=== PATIENT | male | born 1975 | race Caucasian/White ===

== ENCOUNTER 2020-06-30 14:34 | Emergency (ER) | payer OTHER, SELFPAY ==
[2020-06-30] VITALS (9 sets, daily range): BP systolic 132–148; BP diastolic 62–98; PULSE 72–88; RESP 16–18; TEMP 36.7–37.1; O2SAT 96–99; BMI 28.4
[2020-06-30 15:21] LABS: Absolute Lymphocyte Count 1.75 X10^3/uL (0.83-4.51); Absolute Neutrophil Count 2.4 X10^3/uL (2.0-7.7); Basophil# 0.02 X10^3/uL; Basophil% 0.4 % (0-1); Eosinophil# 0.01 X10^3/uL; Eosinophils% 0.2 % (0-5); Hematocrit 43.9 % (40-54); Hemoglobin 14.7 g/dL (13.0-16.5); Lymphocyte # 1.75 X10^3/ul (4.0); Lymphocyte % 38.6 % (19-41); Mean Corp Hgb Conc 33.5 g/dL (32-36); Mean Corpuscular Hgb 28.5 pg (27.0-32.0); Mean Corpuscular Volume 85.1 fL (80-94); Mean Platelet Vol. 11.4 fl (6.2-12.0); Monocyte# 0.37 X10^3/uL; Monocyte% 8.2 % (0-10); NRBC Flagged by Analyzer 0 % (0-5); Neutrophil # 2.36 X10^3/uL (2.7-7.7); Neutrophil % 52.2 % (47-70); Platelet Count 153 K/mm3 (150-450); RBC Distribution Width CV 12.5 % (11.6-14.6); RBC Distribution Width SD 38.6 fl (35.1-43.9); Red Blood Count 5.16 M/mm3 (4.6-6.2); White Blood Count 4.5 K/mm3 (4.4-11.0)
--- NOTE | 2020-06-30 15:24 | CM.ED ---
SOCIAL WORK Received call from forestry workerAngelita prior to patient's arrival. Per Angelita, Crisis will assess patient after arrival. Anticipate referral to [facility]. Patient on phone with Crisis at this time. Nilo Davis MSW, SUPERVISOR ESTERS AND EMULSIFIERS
[2020-06-30 15:39] LABS: Anion Gap 5 (5-15); BUN 14 mg/dL (7-18); BUN/Creat Ratio 11.8 RATIO (10-20); Calcium,Total 8.8 mg/dL (8.5-10.1); Chloride 106 mmol/L (98-107); Creatinine, Serum 1.19 mg/dL (0.70-1.30); EST Glomerular Filtration Rate 70 mL/min (>60); Est Glom Filt Rate - Afr Amer 84 mL/min (>60); Estimated Creatinine Clearance 82.61 ml/min; Glucose 98 mg/dL (74-106); Potassium 3.8 mmol/L (3.5-5.1); Sodium Level 139 mmol/L (136-145)
[2020-06-30 15:56] LABS: Alcohol, Blood (Medical)-Serum < 3.0 mg/dL
--- NOTE | 2020-06-30 16:23 | ED.VISSUMM ---
- ER Visit Summary Date of Service: 06/30/20 Chief Complaint: Depression History of Present Illness: The patient is a [address] Garcia in the counseling center. He reports that he has chronic depression that has worsened over the past 6 months and over the past 2 months he feels as though he cannot cope. He denies overt suicidal ideation. However, he reports he is having auditory hallucinations that are negative thoughts and that he is concerned that he is going to harm himself. Physical Examination: Vitals: Stable. Afebrile. General: Well-nourished and well-developed. Head: Normocephalic atraumatic. Neck: Supple, no lymphadenopathy. No JVD. Nontender. Cardiovascular: Regular rate and rhythm. No murmurs. Respiratory: No respiratory distress. Clear to auscultation bilaterally. Abdominal: Soft, nontender, nondistended, normal bowel sounds. No guarding, rebound, or peritoneal signs. Back: Nontender. Extremities: Nontender, no edema. Skin: Normal color, no rash. Neurologic: Alert and oriented ?3. Cranial nerves II through XII are intact. Normal strength and sensation. Mental status exam: Patient appears their stated age. Good posture and grooming. Good eye contact. Normal rate, volume, and latency of speech. No suicidal or homicidal ideation. No visual hallucinations. Flow of thought is logical. Insight and judgment is fair. Test Results: CBC is normal. Chem-7 is normal. Alcohol is negative. Covid is negative. Tox screen is negative. LFTs are normal. EKG is sinus at 94 with no acute changes. Emergency Department Course and Treatment: Patient is resting comfortably without complaint. He is medically cleared. Treatment Plan: Patient was discussed with the counseling center. He is unable to contract for safety. He will be admitted to a psychiatric hospital for further evaluation and treatment. Disposition: Pending Impression: 1. Depression. This note was generated with [employer] dictation software. It may contain incorrect words, spelling, and punctuation that were not noted in review of the chart prior to signing ED Disposition - Plan for ED Patient: Referrals: Lwa Garcia MD [Primary Care Provider] -
[2020-06-30 17:00] LABS: Amphetamine Urine VISTA NEGATIVE (<1000 ng/mL); Barbiturate Urine VISTA NEGATIVE (< 200 ng/mL); Benzodiazepine Urine VISTA NEGATIVE (< 200 ng/mL); Cocaine Urine VISTA NEGATIVE (< 300 ng/mL); Ecstacy Urine VISTA NEGATIVE (< 500 ng/mL); Methadone Urine VISTA NEGATIVE (< 300 ng/mL); PCP Urine VISTA NEGATIVE (< 25 ng/mL); THC Urine VISTA NEGATIVE (< 50 ng/mL); Vista UDS pH Range 6
--- NOTE | 2020-06-30 17:10 | CM.ED ---
SOCIAL WORK Patient medically cleared. Chart faxed to Crisis for placement. Nilo Davis, BENEFITS CONSULTING ANALYST, PRODUCT DEVELOPMENT SCIENTIST
[2020-06-30 19:49] LABS: AST(SGOT) 20 U/L (15-37); Alanine Aminotransfer ALT/SGPT 33 U/L (16-61); Albumin, Serum 4.1 g/dL (3.2-5.0); Alkaline Phosphatase 48 U/L (45-117); Bilirubin, Direct 0.07 mg/dL (0.00-0.30); Globulin 3.3 g/dL (2.2-4.2); Protein, Total 7.4 g/dL (6.4-8.2)
--- NOTE | 2020-06-30 19:52 | ED.RN ---
PER CRISIS, [facility] REQUESTED ADDITIONAL TESTING, REQUEST FAXED TO [facility] AT THIS TIME
--- NOTE | 2020-06-30 19:57 | EKG12_ITS ---
Test Reason : MHC Blood Pressure : / mmHG Vent. Rate : 094 BPM Atrial Rate : 094 BPM P-R Int : 152 ms QRS Dur : 090 ms QT Int : 346 ms P-R-T Axes : 068 -06 050 degrees QTc Int : 432 ms Normal sinus rhythm Normal ECG Confirmed by ALLISON LOPES, DIANA ([id number]), tape editor ANAHI SAMSON ([id number]) on 07/02/2020 8:45:20 AM Referred By: PANCHO Confirmed By:LORENA COOPER MD
== END 2020-06-30 23:56 | disposition home or self-care (01) ==
LOC: ED 15:19
PROVIDERS: Emergency Provider Emergency Medicine; PCP Family Medicine
DX: F32.9 Major depressive disorder, single episode, unspecified (principal); Z72.0 Tobacco use
CPT/HCPCS: 80048; 80076; 80307; 82077; 85025; 87426; 93005; 99285

== ENCOUNTER 2023-05-21 18:05 | Emergency (ER) | payer SELFPAY ==
[2023-05-21 18:07] VITALS: BP 141/95; PULSE 91; RESP 16; TEMP 35.7; O2SAT 97; BMI 33.7
--- NOTE | 2023-05-21 18:21 | EDS_ITS ---
HPI History of Present Illness Chief Complaint: Complaint Informant: patient Pain Onset: Month(s) Narrative Narrative: Patient presents secondary to difficulty urinating. He states he has stuttering stream and goes frequently. This past summer he required a Sloan catheter for short time. He reportedly followed up with someone at [facility] who took the catheter out told he just was not drinking enough fluids. He has had recurrent symptoms. He is scheduled to see Dr. Alicea in 3 days. Because his symptoms are worse today he called Dr. Alicea who recommended he come in for a catheter if needed. Patient denies dysuria. PFSH PFS Home Medications quetiapine 200 mg tablet 700 mg PO DAILY 06/30/20 [History Last Taken Unknown] clonazepam 1 mg tablet 1 mg PO Q12H 05/21/23 [History Last Taken Unknown] fenofibrate nanocrystallized 145 mg tablet 145 mg PO DAILY 05/21/23 [History Last Taken Unknown] lamotrigine 200 mg tablet 200 mg PO DAILY 05/21/23 [History Last Taken Unknown] metoprolol tartrate 25 mg tablet 25 mg PO Q12H 05/21/23 [History Last Taken Unknown] simvastatin 40 mg tablet 40 mg PO QHS 05/21/23 [History Last Taken Unknown] Allergy/AdvReac Type Severity Reaction Status Date / Time No Known Allergies Allergy Verified 05/21/23 18:06 Social History Smoking Status: Former smoker Smokeless tobacco user: chewing tobacco ROS ROS ED Constitutional Constitutional ED: Denies chills or fever(s) Eyes Eyes: Denies discharge from eye(s) ENT ENT ED: Denies discharge from eye(s), rhinorrhea or sore throat Cardiovascular Cardiovascular: Denies chest pain Respiratory/Chest Respiratory/Chest: Denies cough or dyspnea Gastrointestinal Gastrointestinal: Denies abdominal pain, nausea or vomiting Genitourinary Genitourinary ED: Reports difficulty urinating; Denies dysuria Musculoskeletal Musculoskeletal: Denies back pain or extremity pain Integumentary Denies Abrasions or rash Neurologic Neurologic: Denies headache(s) or weakness Psychiatric Psychiatric: Denies anxiety or depression Allergic/Immunologic Allergic/Immunologic ED: Denies lip swelling or urticaria EXAM Physical Exam Const Vital Signs: 05/21/23 18:07 05/21/23 20:10 Temperature 96.2 F L Temperature Source Temporal Pulse Rate 91 Respiratory Rate 16 18 Blood Pressure 141/95 H Blood Pressure Mean 110 Pulse Ox 97 Oxygen Delivery Method Room Air Positive well nourished and well developed General Appearance ED: well developed HEENT Reports moist mucous membranes Eyes EOMs intact bilaterally Resp normal respiratory effort and clear to auscultation bilaterally Cardio regular rate and regular rhythm GI non-tender Auscultation: normoactive bowel sounds no CVA tenderness Neuro oriented x3 and moves all extremities Psych mental status grossly normal Skin Lesions: no lesions Rashes: no rashes MDM MDM MDM Narrative Medical decision making narrative: Patient feels like he needs to urinate at this time. He will provide us a urine sample and we will obtain a postvoid bladder scan. Urine sent for urinalysis. Lab Data Labs: Laboratory Results - last 24 hr 05/21/23 18:52 Urine Color Yellow Urine Clarity Clear Urine pH 7.0 Ur Specific [place] 1.010 Urine Protein Negative Urine Glucose (UA) Normal Urine Ketones Negative Urine Occult Blood 10 H Urine Nitrite Negative Urine Bilirubin Negative Urine Urobilinogen Normal Ur Leukocyte Esterase 500 H Urine RBC 0 SEEN Urine WBC 5-10 SEEN Ur Squamous Epith Cells 0 SEEN Urine Bacteria 1+ Urine Mucus 0 SEEN Treatment and Re-Evaluation Narrative: Patient was able to void approximately 75 cc. Bladder scan still showed 780 cc in his bladder. Nursing staff attempted to place a Sloan catheter. They state that he had so much scarring and narrowing of the urethral meatus that they were not able to insert a 14 coud? catheter more than a millimeter or 2. I spoke with Dr. Alicea who presented to the emergency room. He was able to stretch the meatus and place a catheter. Urinalysis shows 1+ bacteria with 5-10 white cells and no nitrites. This was discussed with Dr. Alicea and he does not need to be placed on antibiotics at this time. Dr. Alicea's office will be calling him to schedule a surgical procedure. Patient will go home with Sloan catheter. Discharge Plan Triage Chief Complaint: Complaint ED Provider: Kyara Paiz Dx/Rx/DC Orders Clinical Impression: Urinary retention Instructions: ED Sloan Catheter, Care, ED Urinary Retention, Male Prescriptions: No Action quetiapine 200 MG tablet 700 mg PO DAILY Rx Instructions: 1OO MG IN THE MORNING AND 600MG IN THE EVENING clonazepam 1 mg tablet 1 mg PO Q12H Patient Comments: TAKE ONE TABLET BY MOUTH TWICE DAILY NEEDED FOR ANXIETY lamotrigine 200 mg tablet 200 mg PO DAILY Patient Comments: TAKE ONE TABLET BY MOUTH DAILY metoprolol tartrate 25 mg tablet 25 mg PO Q12H Patient Comments: TAKE ONE TABLET BY MOUTH TWICE DAILY simvastatin 40 mg tablet 40 mg PO QHS Patient Comments: TAKE ONE TABLET BY MOUTH DAILY IN THE EVENING fenofibrate nanocrystallized 145 mg tablet 145 mg PO DAILY Patient Comments: TAKE ONE TABLET BY MOUTH DAILY Primary Care Provider: Law Garcia Referrals: Fausto Alicea MD [Med Staff - Active Staff] - As soon as possible Law Garcia MD [Primary Care Provider] - Activity Restrictions/Additional Instructions: Dr. Alicea's office will contact you with follow-up instructions. Disposition Disposition: Home, Self Care Discharge Date/Time: 05/21/23 20:12
[2023-05-21 18:59] LABS: Mucous, Urine 0 SEEN /hpf (<or=2+); Red Blood Cells-Urine 0 SEEN /hpf (0-5); Squamous Epithelial Cells - UA 0 SEEN /hpf (0-5)
[2023-05-21 19:09] LABS: Color, Urine Yellow (Yellow); Glucose, Dipstick Normal (Normal); Ketone-Dipstick Negative (Negative); Leukocyte Esterase-Dipstick 500 /ul (Negative); Nitrite-Dipstick Negative (Negative); Occult Blood-Urine 10 /ul (Negative); Protein-Dipstick Negative (Negative); Urine Bilirubin Dipstick Negative (Negative); Urine Clarity Clear (Clear); Urine Urobilinogen Normal (Normal)
--- OUTSIDE RECORDS SUMMARY | 2023-05-21 19:15 | XMS RPT_ITS | CCD ---
Author Name Unknown Address [address] [place] [address] Organization [facility] Care Team Providers Care Tank Officer Name Role Phone LATOYA DESOUZA Unavailable Unavailable PHYSICIAN, NONE Unavailable Unavailable DOS%ANAHI KULKARNI MD Admitting Unavailabl e DOS%ANAHI KULKARNI MD Attending Unavailabl e DOSANAHI MATHEWS MD Primary Care Unavailabl e BOSS, JAMIN PA-C Referring Unavailable BOSS, JAMIN PA-C Consulting Unavailable PROVIDER, UNKNOWN Consulting Unavailable BOSS, JAMIN PA-C Admitting Unavailable BOSS, JAMIN PA-C Attending Unavailable BOSS, JAMIN PA-C Primary Care Unavailable BOSS, JAMIN PA-C Consulting Unavailable PROVIDER, UNKNOWN Consulting Unavailable BOSS, JAMIN PA-C Admitting Unavailable BOSS, JAMIN PA-C Attending Unavailable BOSS, JAMIN PA-C Primary Care Unavailable BOSS, JAMIN PA-C Consulting Unavailable PROVIDER, UNKNOWN Consulting Unavailable IVANIA TRENT Admitting Unavailable IVANIA TRENT Attending Unavailable IVANIA TRENT Primary Care Unavailable BOSS, JAMIN PA-C Consulting Unavailable BOSS, JAMIN PA-C Referring Unavailable PROVIDER, UNKNOWN Consulting Unavailable Unavailable Primary Care Provider Unavailabl e JONY HAMMONDS Attending Unavailable BOSS, JAMIN Referring Unavailable Bsos PA-C, Jamin J Unavailable Urologist Provider Unavailable Unavailable Drake LOPES, Dr. Reeder ([facility]) A Unavail able Deanne LOPES, Dr. Lambert ([facility]) Unavailable Gillian TIN FLIPPER, Neetu Unavailable Dilip Swan MD Unavailable Day TIN FLIPPER, Chaya Unavailable Unavailable Gogoi (scribe), Hemanta Unavailable Unavaila ble Jj TIN FLIPPER, Lea Unavailable Unavailable Jose LOPES, Law Perez Unavailable Molina HASKINS, Vel Seymour Unavailable [phone] Molina RN, Loren L Unavailable Unavail able Dannie MA, Jessica Unavailable Unavailable Maxime TIN FLIPPER, Mattie Unavailable Unavailable Karishma CISNEROS, Lana A Unavailable Unavaila ble Jed ([facility]), Derick Unavailable Unavailab xiomy Bryan RN, Caro Y Unavailable Unavailable Alexandra TIN FLIPPER, Park Unavailable Unavailable Mutersbaugh TIN FLIPPER, Misa K Unavailable Unavai gato Mitchell ([facility]), Rene Unavailable Unavailab le Richert TIN FLIPPER, Shanti L Unavailable Unavailab le Agnes TIN FLIPPER, Lucina M Unavailable Unavailab le Abiel TIN FLIPPER, Nereida Umanzor Unavailable Unavailab xiomy Ramsay MA, Mattie Unavailable Unavailable Raphaelngeresther TIN FLIPPER, Kyara Unavailable Unavailabl fernanda Guevara TIN FLIPPER, Indigo Gaxiola Unavailable Unavaila ble Zaugg TIN FLIPPER, Kendra Unavailable Unavailable Unavailable Unavailable Allergies Allergy Classification Reported Allergen(s) Allergy Type Date of Onset Reaction(s) Facility (2 sources) Acetaminophen / HYDROcodone; Translations: [HYDROCODONE-ACETA MINOPHEN] Drug Allergy 3 Mental Status Change [facility] Work Phone: Medications Current Medications Medication Drug Class(es) Dates Sig (Normalized) Sig (Original) fenofibrate 145 mg oral tablet (2 sources) Peroxisome Proliferator Receptor alpha Agonist Start: 03-13-2023 fenofibrate nanocrystallized 145 mg tablet ; 1 (one) Tablet daily for 0 days Quantity: 90 {Tablet} Refills: 3 Ordered: 13-Mar-2023 JOZEF Boss Start: 13-Mar-2023 Completed/Discontinued Medications Medication Drug Class(es) Dates Sig (Normalized) Sig (Original) amoxicillin 875 mg / clavulanate 125 mg oral tablet (1 source) Penicillin-class Antibacterial Start: 02-27-2019 End: 03-13-2019 take 1 tablet by mouth twice daily Amoxicillin-Pot Clavulanate 875-125 MG Oral Tablet ; 1 (one) Tablet two times daily for 14 days Quantity: 28 {Tablet} Refills: 0 Ordered: 27-Feb-2019 MD Law Garcia Start: 27-Feb-2019 End: 13-Mar-2019 Status: Inactive azithromycin 500 mg oral tablet (2 sources) Macrolide Antimicrobial Start: 08-22-2018 End: 08-25-2018 take 1 tablet by mouth once daily Azithromycin 500 MG Oral Tablet ; 1 (one) Tablet daily for 3 days Quantity: 3 {Tablet} Refills: 0 Ordered: 22-Aug-2018 MD Law Garcia Start: 22-Aug-2018 End: 25-Aug-2018 Status: Inactive Problems Active Problems Problem Classification Problem Date Documented Date Episodic/Chronic Abdominal pain (6 sources) Flank pain; Translations: [Unspecified abdominal pain] 05-07-2023 Episodic Acute bronchitis (2 sources) Acute bronchitis; Translations: [Acute bronchitis, unspecified] 08-22-2018 Episodic Administrative/socia l admission (1 source) Repeated prescription; Translations: [Encounter for issue of repeat prescription] 02-26-2017 Episodic Coagulation and hemorrhagic disorders (3 sources) Thrombocytopenic disorder; Translations: [Thrombocytopenia, unspecified] 05-07-2023 Chronic Diseases of white blood cells (3 sources) Leukopenia; Translations: [Decreased white blood cell count, unspecified] 05-07-2023 Chronic Disorders of lipid metabolism (20 sources) Hyperlipidemia; Translations: [Hyperlipidemia, unspecified] 05-07-2023 Chronic Essential hypertension (15 sources) Hypertensive disorder; Translations: [Essential (primary) hypertension] 05-07-2023 Chronic Genitourinary symptoms and ill-defined conditions (10 sources) Retention of urine; Translations: [Retention of urine, unspecified] Onset: 11-03-2022 Episodic Mood disorders (16 sources) Bipolar disorder; Translations: [Bipolar disorder, unspecified] 05-07-2023 Chronic Past or Other Problems Problem Classification Problem Date Documented Date Episodic/Chronic Open wounds of extremities (3 sources) Puncture wound with foreign body of right hand, initial encounter; Translations: [Puncture wound with foreign body of right hand, initial encounter] Onset: 07-05-2022 Episodic Unclassified (1 source) UTI - Symptoms include hematuria (occasionally), but do not include dysuria, urinary frequency, urinary urgency, flank pain, abdominal pain or back pain. Onset was gradual 3 month(s) ago. There is no known event that preceded symptom onset. The symptoms occur frequently. The patient describes this as moderate in severity and worsening. Symptoms are not relieved by cranberry juice. Associated symptoms include urinary incontinence (2-3 times a week), urinary retention (Patient was in the ER in October and needed a catheter at the time. He had follow up with a urologist, but they removed the catheter and did not do any other workup. He reports that symptoms of urinary retention did not start again until 2-3 months ago.) and urinary hesitancy, but do not include fever, chills, nausea or urethral discharge. Note for UTI : Patient also reports a painful lump on the shaft of his penis that seems to be getting bigger over the last 2-3 weeks. 05-07-2023 Unclassified (1 source) Chest pain - The onset of the pain has been acute and has been occurring in an episodic pattern for 6 days. Each episode lasts hours (approx 1-2 hours). The pain is described as a moderate to severe tightness ( shakiness , located in the center of chest). The pain does not radiate. The pain is precipitated by nothing (Happens at rest or with activity). The symptoms are aggravated by stress (he wonders if his symptoms are related to anxiety. He did speak with a nurse with psychiatrist and was advised to see PCP to rule out cardiac reasons for the symptoms he is having. He has an appt with psychiatrist this coming . The chest pain seems to goes away on its own, sometimes drinking cold water or taking pain medications (ibuprofen) will help to ease the pain. Patient reports that he has been more anxious recently and has an appointment to see his psychiatrist on .). The symptoms are relieved by nothing (Usually resolves spontaneously.). The symptoms have been associated with dizziness (sometimes), diaphoresis (Not every time), emotional stress and palpitations (heart racing sometimes), but have not been associated with abdominal pain, blurred vision, cough, dyspnea, fever, history of heart disease, hypertension, nausea, syncope or vomiting. Note for Chest pain : About 1 month ago, stopped smoking cigarettes and using chewing tobacco. Instead was vaping with nicotine, he did this up until last week. He no longer vapes but is currently back to using chewing tobacco.Patient reports that he has had cardiac workup in the past. Reports last stress test was 1-2 years ago through the ER and was normal at that time. 06-26-2022 Unclassified (1 source) Back pain - The onset of the back pain has been gradual and has been occurring in an intermittent pattern for 6 days. The course has been recurrent. The pain is characterized as stabbing and burning. The pain is located in the lower back and radiates to the right groin and left groin. There are no precipitating factors. The symptoms have no aggravating factors and are relieved by NSAIDs (Ibuprofen). The pain has been associated with chills, dysuria and flank pain, while there has been no associated fever, history of back surgery, incontinence of stool or incontinence of urine. Note for Back pain : Patient reports a history of a kidney stone about 20 years ago. He has not had a stone since then, but reports that this pain feels similar to when he had the stone. Reports that he did see blood in his urine on Sunday, but has not seen any since then. 01-18-2022 Unclassified (1 source) Transition into care 08-25-2020 Unclassified (1 source) [ADDITIONAL REASON] Follow up laboratory test results - Lab results returned on : (/01/08) include abnormal CBC and other (elevated cholesterol). The patient denies any current symptoms. 08-25-2020 Unclassified (1 source) Concern - Patient is here today with a concern of lump located on his tailbone area. Been present for about 1 week or so. Is becoming larger in size, more painful and red. No drainage.Patient states that he had a cyst in the same area that had to be drained in the past. No fever or chills. 02-27-2019 Unclassified (1 source) Cold Symptoms - Symptoms include nasal congestion, sore throat, dry cough (chest tightness), wheezing (shortness of breath), fever (possibly, having sweats), chills, general malaise (body aches), headache and facial pain (left side of face), but do not include runny nose, ear pain, ear fullness or productive cough. The onset was sudden 2 day(s) ago. The symptoms occur constantly. The patient describes this as moderate in severity and worsening. Current treatment includes NSAIDs (ibuprofen) and Natural Infection pills. Risk factors include smoking. The patient has not been exposed to an individual with an upper respiratory infection. Patient denies history of seasonal allergies, recurrent sinusitis, asthma or tonsillectomy. 08-22-2018 Unclassified (1 source) UTI - Symptoms include dysuria, urinary frequency and abdominal pain. The pain is located in the suprapubic area and in the back. There is no radiation. The patient describes the pain as aching. Onset was gradual 2 week(s) ago. There is no known event that preceded symptom onset. The symptoms occur constantly. The patient describes this as moderate in severity and worsening. Associated symptoms include nausea and urinary retention. Note for UTI : Pt had surgery on his urethra 7-8 years ago 03-20-2018 Unclassified (1 source) Follow up consultation - The patient is here to follow-up after Emergency Room[facility] ([facility] 4 [facility] and was diagnosed with pneumonia and given a 5 day Zpack. Improved slightly aftern antibiotic was completed.). Note for Consultation follow-up : Continues with dry cough and back pain when coughing. Shortness of breath on occasion. 01-14-2018 Unclassified (1 source) Concern - Patient is here today for a concern of groin pain on the right side. The pain first started in July. In the past 3-4 weeks the pain has worsened and is becoming more frequent. The pain is described as being an achy pain with periods of sharp pain. Has taken pain medications such as ibuprofen to get through the day. Denies having burning on urination, urinary frequency/urgency or difficulty with urination. No fever or cold chills. No abdominal pain. Patient questions if the pain could be related to a hernia. 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 12-29-2016 Unclassified (1 source) Wrist pain - The pain is in the right wrist and is described as being located in the entire wrist. The onset of the wrist pain has been sudden following an incident at work (Not [facility]) and has been occurring in a persistent pattern for 4 days. The course has been without change. The wrist pain is characterized as a moderate burning sensation. Aggravating factors include physical activity, work duties, flexion, extention, radial deviation and ulnar deviation. Relieving factors include rest, ice, modification of activity, bracing and NSAIDs. Associated features include joint swelling, painful ROM, decreased ROM, erythema, burning sensation, difficulty opening doors, difficulty turning keys in the ignition, difficulty with shaking hands, difficulty with fine motor skills and difficulty with lifting. The wrist pain was preceded by trauma (twisted wrist while doing work duties). 05-10-2015 Unclassified (1 source) Transition into care - The patient most recently received care from an emergency room ([facility] Dx: Pneumonia). 03-31-2013 Unclassified (1 source) [ADDITIONAL REASON] Follow up consultation - The patient is here to follow-up after Emergency Room/Urgent Care ([facility] Dx Pneumonia) on : (03/26/13). Current symptoms include chest pain, cough, dyspnea, wheezing and other (fever). Note for Consultation follow-up : Patient prescribed zithromax and is using a nebulizer machine three times a day. Patient does not note any improvement since being in the emergency room. 03-31-2013 Unclassified (1 source) Wrist Pain - The onset of the wrist pain has been sudden following an incident not at work and has been occurring in a persistent pattern for 4 weeks. The course has been worsening. The wrist pain is moderate to severe. The wrist pain is characterized as a dull aching. The wrist pain is described as being located in the entire wrist. Aggravating factors include physical activity. There are no relieving factors. Associated features include joint swelling and painful ROM. Note for Wrist Pain : pain is radiating up to his shoulder 09-16-2010 Unclassified (1 source) arm injury - Pt had injury to the left forearm 1 week ago, had 2 xrays done, 1 at [facility] and 1 at his chiropractor and both were negative, is having a lot of swelling was concerned might have infection, rocephin 1 gram was given at [facility] and has rx for cephalexin 500mg. 08-26-2010 Results Test Name Value Interpretation Reference Range Facil ity Vital Signs Date Time Vital Sign Value Performing Clinician Faci lity 05-07-2023 11:26-0500 Body height 179.07 cm Jessica Pandey MA [facility], [facility]. 05-07-2023 11:26-0500 Body mass index (BMI) [Ratio] 34.52 kg/m2 Jessica Pandey MA [facility], [facility].; [facility]. 05-07-2023 11:260500 Body surface area Derived from formula 2.28 m2 Jessica Pandey MA [facility]. 05-07-2023 11:26050 Body weight 110.68 kg Jessica Pandey MA [facility]. 05-07-2023 11:260500 Diastolic blood pressure 81 mm[Hg] Jessica [facility]. Encounters Encounter Date Encounter Type Care Provider Facility Start: 05-11-2023 End: 05-11-2023 Medication Jamin Boss PA-C [facility] Start: 05-07-2023 End: 05-07-2023 Office outpatient visit 25 minutes Jamin Boss PA-C [facility] Start: 03-13-2023 End: 03-13-2023 Office outpatient visit 15 minutes Jamin Boss PA-C [facility]. Start: 11-03-2022 End: 11-04-2022 ambulatory JONY HAMMONDS Facility:[facility] Start: 11-03-2022 End: 11-03-2022 Patient encounter procedure Jony Hammonds PA-C Work Phone: Urology Procedures Date Procedure Procedure Detail Performing Clinician Start: 06-26-2022 End: 06-26-2022 Ecg routine ecg w/least 12 lds i&r only Jamin Mona Boss PA-C Work Phone: Start: 01-18-2022 End: 01-19-2022 Ct abdomen & pelvis w/o contrast material Jamin Mona Boss PA-C Work Phone: Start: 12-20-2019 End: 12-20-2019 Lab findings surveillance Jessica Perez Plan of Treatment Date Care Activity Detail Author Start: 03-13-2023 Basic metabolic panel calcium total BMP w/ GFR (F) (01624) Start: 13-Mar-2023 15:47 Request [employer]. Start: 03-13-2023 Blood count complete auto&auto difrntl wbc CBC, PLATELETS & AUT DIFF (F) (51900) Start: 13-Mar-2023 15:47 Request [employer]. Start: 03-13-2023 Lipid panel LIPID PANEL (55890) Start: 13-Mar-2023 15:47 Request [employer]. Start: 03-13-2023 Assay of thyroid stimulating hormone tsh TSH (THYROID STIMULATING HORMONE) (26521) Start: 13-Mar-2023 15:47 Request [employer]; [employer]. Start: 01-19-2023 Influenza vaccination INFLUENZA (Season Ended) [facility] Start: 05-21-2022 DEPRESSION ASSESSMENT DEPRESSION ASSESSMENT [facility] Start: 2018 COLOGUARD (FIT-DNA) COLOGUARD (FIT-DNA) [facility] Start: 2018 Colonoscopy COLONOSCOPY [facility] Start: 2018 COLORECTAL CANCER SCREENING COLORECTAL CANCER SCREENING [facility] Start: [address] COLONOGRAPHY [facility] Start: 2018 DIABETES SCREEN DIABETES SCREEN [facility] Start: 2018 FECAL OCCULT BLOOD FECAL OCCULT BLOOD [facility] Start: 2018 SIGMOIDOSCOPY SIGMOIDOSCOPY [facility] Start: 2008 LIPID SCREEN LIPID SCREEN [facility] Start: 1992 Urine microalbumin profile DTAP,TDAP,TD (1 - Tdap) [facility] Start: 08-19-1991 HEPATITIS C SCREENING HEPATITIS C SCREENING [facility] Start: 08-19-1991 HIV SCREENING HIV SCREENING [facility] Start: 02-17-1974 COVID-19 VACCINE (#1) COVID-19 VACCINE (#1) [facility] Start: 1973 HEPATITIS B (1 of 3 - 3-dose series) HEPATITIS B (1 of 3 - 3-dose series) [facility] Payers Date Payer Category Payer Self-pay 1973 Unknown [id number] 1975 Unknown [id number] 1975 Unknown [id number] Unknown [id number] Worker's Compensation [id number] Social History Date Type Detail Facility Start: 11-03-2022 Tobacco smoking stat [facility] Never smoked tobacco [facility] Work Phone: Start: 11-03-2022 Tobacco use and exposure User of smokeless tobacco [facility] Work Phone: Start: 11-03-2022 Alcohol intake Ex-drinker (finding) [facility] Start: 1975 Sex Assigned At Not on file C [facility] Alcohol Use: Alcohol Use: ; None. [employer] Tobacco Use: Tobacco Use: ; U ses chewing tobacco. [employer]. Male [employer]; [employer] Work Phone: Uses chewing tobacco [employer]; [employer] Work Phone: Progress note 11-03-2022 Note Date & Type Note Facility 11-03-2022 Note HNO ID: [id number] Author: Jessica Puente Service: ? Author Type: ? Type: Progress Notes Filed: 11/03/2022 12:02 PM Note Text: Patient presents for trial of voiding. Bladder filled with 240ml cc of sterile saline, balloon deflated, 14 fr coude don catheter removed without difficulty, balloon intact. Patient voided 400 cc's of clear and yellow urine mixed with saline. It did take him approx 30 minutes to accomplish the void. Follow up scheduled for 1 month. Jessica Puente [facility] Progress note 11-03-2022 Note Date & Type Note Facility 11-03-2022 Note HNO ID: [id number] Author: Jony Hammonds PA-C Service: ? Author Type: Physician Construction Operations Manager Type: Progress Notes Filed: 11/03/2022 12:02 PM Note Text: [facility] NEW PATIENT CLINIC NOTE SERVICE DATE: 11/03/2022 SERVICE TIME: 9:49 AM NAME: Nela Eduardo CHIEF COMPLAINT: Urine Retention HISTORY OF PRESENT ILLNESS: Nela Eduardo is a 47 year old male presenting with urine retention The patient reports he had a great pain in the penis while trying to urinate recently and felt There was something stuck in penis, and was take to ER where they attempted don placement x 2 Due to inability to pass don through penis He states he had a urethral stricture but doesn't recall if was dilated or stricture removed > 10 yrs TOV today and start Flomax , in unable to void, he will need don and wait another week and retry TOV LABS: No results found for: TESTOST No results found for: TESTFREE No results found for: PSA No results found for: HCT No results found for: PSA No results found for: CREAT . MEDICATIONS: clonazePAM (KLONOPIN) 1 mg tablet Take 1 mg by mouth twice daily as needed. QUEtiapine (SEROQUEL) 200 mg tablet Take by mouth as directed. lamoTRIgine (LAMICTAL) 200 mg tablet Take 200 mg by mouth once daily. metoprolol tartrate, short acting, (LOPRESSOR) 25 mg tablet Take 25 mg by mouth twice daily. fenofibrate nanocrystallized (TRICOR) 145 mg tablet Take 145 mg by mouth once daily. simvastatin (ZOCOR) 40 mg tablet Take 40 mg by mouth every evening. tamsulosin (FLOMAX) 0.4 mg Take 1 capsule by mouth daily at bedtime. PAST MEDICAL HISTORY: PAST MEDICAL HISTORY Diagnosis Date Bipolar affective disorder (HCC) Essential hypertension Generalized anxiety disorder Heart valve problem History of multiple concussions Hypercholesteremia Thrombocytopenia (HCC) PAST SURGICAL HISTORY: PAST SURGICAL HISTORY Procedure Laterality Date PAST SURGICAL HISTORY OF 2013 Urethral repair after trauma PAST SURGICAL HISTORY OF brain surgery after head trauma FAMILY HISTORY: FAMILY HISTORY Adopted: Yes Family history unknown: Yes SOCIAL HISTORY: Social Connections: Not on file REVIEW OF SYSTEMS: GENERAL: No fever, chills, weight loss, or fatigue. ENMT: Negative CARDIOVASCULAR:NO CHEST PAIN, PALPITATIONS, ANKLE EDEMA RESPIRATORY: No chronic cough, wheezing, dyspnea, hemoptysis. GENITOURINARY: SEE HPI MUSCULOSKELETAL:NO CHRONIC BACK PAIN, ARTHRITIS, CHRONIC NECK PAIN SKIN: NO VARICOSE VEINS, RASH, ABNORMAL ITCHING HEME/LYMPH/IMMUNE:Negative for prolonged bleeding, bruising easily or swollen nodes NEUROLOGICAL: NO HEADACHES, NUMBNESS, SEIZURES, STROKE DIABETES: no All other systems reviewed and are negative PHYSICAL EXAMINATION: Blood pressure 120/82, pulse 91, temperature 36.6 ?C (97.8 ?F), height 180.3 cm (5' 11 ), weight 110 kg (242 lb 9.6 oz), SpO2 100 %. GENERAL: WNL nutrition, no deformities, healthy appearing NEURO: Awake, alert and oriented x 3 and Normal gait PSYCH: No signs of depression, anxiety, or agitation ENMT (Ear, Nose, Mouth, Throat): No masses, adenopathy, icterus. Thyroid nonpalpable RESP: NL effort, no retractions or purse-lip breathing. CV: No extremity swelling, varices, edema, pallor, erythema GASTROINTESTINAL: Soft, nontender, nondistended, no masses. HERNIAS: None SKIN: No rash, lesions No palpable lymphadenopathy MUSCULOSKELETAL: Extremities normal. No deformities, edema, clubbing or skin discoloration. GENITOURINARY: MALE EXAM: Epididymis AND testes: normal size, position, without masses Urethra AND meatus: normal size AND position w/o lesion or discharge Penis: circumcised, with some edema on the left dorsal behind glans, PROBLEM LIST REVIEW: Yes LABS: No results found for this or any previous visit. PROCEDURES: PVR: 1400 ml prior to don in ER IMAGING: IMPRESSION/PLAN: 47 year old male with 1. Urine retention - ICD9: 788.20, ICD10: R33.9 (primary diagnosis) 2. Hx of urethral stricture - ICD9: V13.09, ICD10: Z87.448 3. Penile pain - ICD9: 607.9, ICD10: N48.89 > TOV in Office > Flomax Rx sent today > Follow-up 1 month I spent a total of 30 minutes on the date of the service which included preparing to see the patient, face to face patient care, completing clinical documentation, obtaining and/or reviewing separately obtained history, performing a medically appropriate examination, counseling and educating the patient/family/caregiver, ordering medications, tests, or procedures, and care coordination. Jony Hammonds, UZIELS, [place], JOZEF [facility] History of Present illness Narrative 11-03-2022 Jessica Puente - 11/03/2022 10:45 AM EDTBfadi Hammonds PA-C - 11/03/2022 9:48 AM EDT Note Date & Type Note Facility 11-03-2022 History of Presen t illness Narrative Patient presents for trial of voiding. Bladder filled with 240ml cc of sterile saline, balloon deflated, 14 fr coude don catheter removed without difficulty, balloon intact. Patient voided 400 cc's of clear and yellow urine mixed with saline. It did take him approx 30 minutes to accomplish the void. Follow up scheduled for 1 month. Jessica Puente Images from the original note were not included. [facility] [place] [facility] NEW PATIENT CLINIC NOTE SERVICE DATE: 11/03/2022 SERVICE TIME: 9:49 AM NAME: Nela Eduardo CHIEF COMPLAINT: Urine Retention HISTORY OF PRESENT ILLNESS: Nela Eduardo is a 47 year old male presenting with urine retention The patient reports he had a great pain in the penis while trying to urinate recently and felt There was something stuck in penis, and was take to ER where they attempted don placement x 2 Due to inability to pass don through penis He states he had a urethral stricture but doesn't recall if was dilated or stricture removed > 10 yrs TOV today and start Flomax , in unable to void, he will need don and wait another week and retry TOV LABS: No results found for: TESTOST No results found for: TESTFREE No results found for: PSA No results found for: HCT No results found for: PSA No results found for: CREAT . MEDICATIONS: clonazePAM (KLONOPIN) 1 mg tablet Take 1 mg by mouth twice daily as needed. QUEtiapine (SEROQUEL) 200 mg tablet Take by mouth as directed. lamoTRIgine (LAMICTAL) 200 mg tablet Take 200 mg by mouth once daily. metoprolol tartrate, short acting, (LOPRESSOR) 25 mg tablet Take 25 mg by mouth twice daily. fenofibrate nanocrystallized (TRICOR) 145 mg tablet Take 145 mg by mouth once daily. simvastatin (ZOCOR) 40 mg tablet Take 40 mg by mouth every evening. tamsulosin (FLOMAX) 0.4 mg Take 1 capsule by mouth daily at bedtime. PAST MEDICAL HISTORY: PAST MEDICAL HISTORY Diagnosis Date Bipolar affective disorder (HCC) Essential hypertension Generalized anxiety disorder Heart valve problem History of multiple concussions Hypercholesteremia Thrombocytopenia (HCC) PAST SURGICAL HISTORY: PAST SURGICAL HISTORY Procedure Laterality Date PAST SURGICAL HISTORY OF 2013 Urethral repair after trauma PAST SURGICAL HISTORY OF brain surgery after head trauma FAMILY HISTORY: FAMILY HISTORY Adopted: Yes Family history unknown: Yes SOCIAL HISTORY: Social Connections: Not on file REVIEW OF SYSTEMS: GENERAL: No fever, chills, weight loss, or fatigue. ENMT: Negative CARDIOVASCULAR:NO CHEST PAIN, PALPITATIONS, ANKLE EDEMA RESPIRATORY: No chronic cough, wheezing, dyspnea, hemoptysis. GENITOURINARY: SEE HPI MUSCULOSKELETAL:NO CHRONIC BACK PAIN, ARTHRITIS, CHRONIC NECK PAIN SKIN: NO VARICOSE VEINS, RASH, ABNORMAL ITCHING HEME/LYMPH/IMMUNE:Negative for prolonged bleeding, bruising easily or swollen nodes NEUROLOGICAL: NO HEADACHES, NUMBNESS, SEIZURES, STROKE DIABETES: no All other systems reviewed and are negative PHYSICAL EXAMINATION: Blood pressure 120/82, pulse 91, temperature 36.6 C (97.8 F), height 180.3 cm (5' 11 ), weight 110 kg (242 lb 9.6 oz), SpO2 100 %. GENERAL: WNL nutrition, no deformities, healthy appearing NEURO: Awake, alert and oriented x 3 and Normal gait PSYCH: No signs of depression, anxiety, or agitation ENMT (Ear, Nose, Mouth, Throat): No masses, adenopathy, icterus. Thyroid nonpalpable RESP: NL effort, no retractions or purse-lip breathing. CV: No extremity swelling, varices, edema, pallor, erythema GASTROINTESTINAL: Soft, nontender, nondistended, no masses. HERNIAS: None SKIN: No rash, lesions No palpable lymphadenopathy MUSCULOSKELETAL: Extremities normal. No deformities, edema, clubbing or skin discoloration. GENITOURINARY: MALE EXAM: Epididymis & testes: normal size, position, without masses Urethra & meatus: normal size & position w/o lesion or discharge Penis: circumcised, with some edema on the left dorsal behind glans, PROBLEM LIST REVIEW: Yes LABS: No results found for this or any previous visit. PROCEDURES: PVR: 1400 ml prior to don in ER IMAGING: IMPRESSION/PLAN: 47 year old male with 1. Urine retention - ICD9: 788.20, ICD10: R33.9 (primary diagnosis) 2. Hx of urethral stricture - ICD9: V13.09, ICD10: Z87.448 3. Penile pain - ICD9: 607.9, ICD10: N48.89 > TOV in Office > Flomax Rx sent today > Follow-up 1 month I spent a total of 30 minutes on the date of the service which included preparing to see the patient, face to face patient care, completing clinical documentation, obtaining and/or reviewing separately obtained history, performing a medically appropriate examination, counseling and educating the patient/family/caregiver, ordering medications, tests, or procedures, and care coordination. EVE David, PARAM, JOZEF documented in this encounter [facility] Evaluation note Note Date & Type Note Facility documented in this encounter [facility] Summary Purpose Family History No Family History Records FoundNo Family History Records FoundNo Family History Records FoundNo Family History Records Found Advance Directives No Advanced Directives Records FoundNo Advanced Directives Records FoundNo Advanced Directives Records FoundNo Advanced Directives Records Found Additional Source Comments (unrecognized sect ion and content) No Status Records FoundNo Status Records FoundNo Status Records FoundNo Status Records Found INFORMATION SOURCE (unrecogn ized section and content) DATE CREATED AUTHOR AUTHOR'S ORGANIZ ATION 10/30/2022 [facility] DATE CREATED AUTHOR AUTHOR'S ORGANIZ ATION 11/07/2022 [facility] DATE CREATED AUTHOR AUTHOR'S ORGANIZ ATION 05/11/2023 [facility] Source Comments (unrecognize d section and content) In the event this informatio n is protected by the Federal Confidentiality of Alcohol and Drug Abuse Patient Records regulations: The Federal rules restrict any use of the information to criminally investigate or prosecute any alcohol or drug abuse patient.[facility] Reason for Visit (unrecogniz ed section and content) Specialty Diagnoses / Procedures Referred By Contac t Referred To Contact Diagnoses Not able to produce Urine Procedures OFFICE/OUTPATIENT [facility] 60-74 MINUTES Jamin Boss [address] [place] [address] [facility] Dept Referral ID Status Reason Start Date Expiration Date Visits Requested Visits Authorized [id number] Authorized Patient Cleared - Qualified 100% FAS 10/30/2022 01/28/2023 99 99 FOR RECORDS PERTAINING TO PATIENTS WHO ARE OR HAVE BEEN ENROLLED IN A CHEMICAL DEPENDENCY/SUBSTANCEABUSE PROGRAM, SOME INFORMATION MAY BE OMITTED. This clinical summary was aggregated from multiple sources. Caution should be exercised in using it in the provision of clinical care. This summary normalizes information from multiple sources, and as a consequence, information in this document may materially change the coding, format and clinical context of patient data. In addition, data may be omitted in some cases. CLINICAL DECISIONS SHOULD BE BASED ON THE PRIMARY CLINICAL RECORDS. [employer] [facility]. provides no warranty or guarantee of the accuracy or completeness of information in this document.
[2023-05-21 19:31] LABS: Bacteria 1+ /hpf (None Seen); White Blood Cells 5-10 SEEN /hpf (0-5)
--- NOTE | 2023-05-21 19:46 | PCM.CONS.U ---
Assessment & Plan Assessment/Plan (1) Urinary retention: (2) Meatal stenosis: PLAN: Status post dilation of meatus and Sloan placement in the ER Home with Sloan my office to call with outpatient instructions to get him set up for an outpatient meatotomy HPI Consult Data Date of Consult: 05/21/23 HPI Narrative Reason for Consultation: Meatal stenosis retention of urine HPI Narrative: MARY JANE SOLORZANO, is a 47 M who presents to ER with a history of trauma to the penis long time ago while at work this happened over 10 to 14 years ago. Then last summer he ended in the ER and he had a small Sloan catheter placed which was then removed but then had recurrence of symptoms difficulty emptying the bladder difficulty emptying his bladder so he called me today I told to go to the ER ER attempted to place a Sloan catheter but reported that he had a very tight meatus and was not able to get through. So I came into the emergency room today dilated the meatus from 12-18 Armenian with a Bard kit and then placed a 16 Armenian catheter through the meatus into the bladder and drained over 800 cc of clear yellow urine. He will go home with a Sloan catheter, we will get him set up for outpatient surgery for a cystoscopy dilation of meatal stenosis and meatotomy to try to do a definitive cure PFSH Home Medications quetiapine 200 mg tablet 700 mg PO DAILY 06/30/20 [History Last Taken Unknown] clonazepam 1 mg tablet 1 mg PO Q12H 05/21/23 [History Last Taken Unknown] fenofibrate nanocrystallized 145 mg tablet 145 mg PO DAILY 05/21/23 [History Last Taken Unknown] lamotrigine 200 mg tablet 200 mg PO DAILY 05/21/23 [History Last Taken Unknown] metoprolol tartrate 25 mg tablet 25 mg PO Q12H 05/21/23 [History Last Taken Unknown] simvastatin 40 mg tablet 40 mg PO QHS 05/21/23 [History Last Taken Unknown] Allergy/AdvReac Type Severity Reaction Status Date / Time No Known Allergies Allergy Verified 05/21/23 18:06 Social History Smoking Status: Former smoker Smokeless tobacco user: chewing tobacco Physical Exam Const alert and oriented x3 General Appearance: cooperative HEENT normocephalic, head/scalp atraumatic, EAC's normal and TM's normal bilaterally Eyes PERRL and EOMs intact bilaterally Pupil: sluggish Neck no lymphadenopathy, supple and no JVD General: trachea midline Lymph Lymphatic: no lymphadenopathy noted, lymphedema and lymphadenopathy Resp normal respiratory effort, normal air movement and clear to auscultation bilaterally Cardio regular rate, regular rhythm and peripheral pulses 2+ throughout GI soft to palpation, non-tender and non-distended Extremity normal capillary refill and no clubbing, cyanosis or edema General Extremity: no tenderness to palpation of joints or extremities Skin no rashes or lesions noted General Skin Exam: turgor normal Lesions: no lesions Rashes: no rashes Neuro CN's II-XII intact bilaterally Speech: speech normal Motor Exam: strength 5/5 throughout; Negative for general weakness Psych thought process normal, cooperative and affect normal Appearance: appropriate Medical Records Data Attestation: I reviewed the patient's medical records Lab / Micro Data Labs: Laboratory Results - last 24 hr 05/21/23 18:52: Urine Color Yellow, Urine Clarity Clear, Urine pH 7.0, Ur Specific [place] 1.010, Urine Protein Negative, Urine Glucose (UA) Normal, Urine Ketones Negative, Urine Occult Blood 10 H, Urine Nitrite Negative, Urine Bilirubin Negative, Urine Urobilinogen Normal, Ur Leukocyte Esterase 500 H, Urine RBC 0 SEEN, Urine WBC 5-10 SEEN, Ur Squamous Epith Cells 0 SEEN, Urine Bacteria 1+, Urine Mucus 0 SEEN
--- NOTE | 2023-05-21 19:48 | PCM.OPRPT ---
Report of Operation Date of Procedure: 05/21/23 Pre-Operative Diagnosis: Urinary retention and unable to place Sloan Post-Operative Diagnosis: The same Surgery/Procedure Performed:: Dilation of meatus and Sloan placement Description of Surgical Findings:: At the bedside the penis was prepped and draped in usual sterile fashion lidocaine jelly was placed into the urethra the tip of the penis is quite tight the tip of the met lidocaine jelly just barely went in I then used the serial sounds and the kit and went from 12 Faroese to 18 Faroese and gently dilated the tip of the meatus I then was able to get a 16 Faroese catheter into the bladder and drained a lot of urine from the bladder and placed to gravity drainage. Surgeon: Fausto Alicea Type of Anesthesia: General Drains: 16 Faroese Estimated Blood Loss (mL): 0 Admit VTE Documentation VTE Present on Admission: No VTE Mechan Device Prophylaxis: SCD's VTE Pharm Prophylaxis ordered?: No
[2023-05-21 20:10] VITALS: RESP 18
== END 2023-05-21 20:12 | disposition home or self-care (01) ==
PROVIDERS: Emergency Provider Emergency Medicine; PCP Family Medicine; Visit Provider Emergency Medicine
DX: R33.9 Retention of urine, unspecified (principal); Z87.891 Personal history of nicotine dependence; Z79.899 Other long term (current) drug therapy
CPT/HCPCS: 81001; 87077; 87086; 87088; 99282

== ENCOUNTER → 2024-09-09 | Outpatient (CLI) | payer SELFPAY ==
[2024-09-09 11:11] LABS: PSA,Total - Annual Screen 1.02 ng/mL (0.02-4.00)
== END | disposition home or self-care (01) ==
PROVIDERS: Referring Provider Nurse Practitioner; Visit Provider Nurse Practitioner
DX: Z12.5 Encounter for screening for malignant neoplasm of prostate (principal)
CPT/HCPCS: 36415; 84153; G0103